=== PATIENT | female | born 1970 | race Asian ===

== ENCOUNTER 2022-02-03 10:14 | Emergency (ER) | payer BC ==
[~2022-02-03] VITALS: Ht 160 cm; Wt 72.2 kg
[2022-02-03 10:23] VITALS: BP 109/66
--- NOTE | 2022-02-03 10:28 | NUR ---
PT AMBULATED TO ER BED 9 WITH A STEADY GAIT.
--- NOTE | 2022-02-03 10:45 | NUR ---
52 Y/O FEMALE C/O RIGHT BREAST PAIN 05/06 DESCRIBES ACHING X 1 MONTH. PT STATES SHE HAS LUMP PRESENT, ON PALPATION PER ERMD PT GRIMACING IN PAIN, TENDERNESS TO SITE. DENIES FEVER/CHILLS. DENIES N/V/D. DENIES PMH NKA
--- NOTE | 2022-02-03 10:53 | NUR ---
DR. VILLAFUERTE AT PT BEDSIDE FOR FURTHER EVALUATION.
--- NOTE | 2022-02-03 11:08 | NUR ---
US TECH AT PT BEDSIDE.
[2022-02-03 12:50] VITALS: BP 126/72
--- NOTE | 2022-02-03 12:55 | NUR ---
PT RESTING IN BED, VISIBLE RISE AND FALL OF CHEST, VSS, WILL CONTINUE TO MONITOR.
[2022-02-03] MEDS ORDERED: NAPR-1704 PO (13:48)
--- NOTE | 2022-02-03 14:09 | NUR ---
Patient discharged with v/s stable. Written and verbal after care instructions given FOR BREAST CYST and explained. Patient alert, oriented and verbalized understanding of instructions. Ambulatory with steady gait. All questions addressed prior to discharge. ID band removed. Patient advised to follow up with PMD. Rx of NAPROXEN given. Patient educated on indication of medication including possible reaction and side effects. Opportunity to ask questions provided and answered.
== END 2022-02-03 14:08 | disposition home or self-care (01) ==
LOC: MED 10:14
DX: N63.10 Unspecified lump in the right breast, unspecified quadrant (principal); F17.200 Nicotine dependence, unspecified, uncomplicated; Z79.1 Long term (current) use of non-steroidal anti-inflammatories (NSAID)
CPT/HCPCS: 76641; 99284; Q0092